=== PATIENT | male | born 1970 ===

== ENCOUNTER → 2022-11-18 07:47 | Outpatient (CLI) | payer BC, SELFPAY ==
--- NOTE | ~2022-11-18 | MR_ITS ---
EXAMINATION: MR knee LT wo con DATE: 11/18/2022 08:16 INDICATION: Chronic left knee pain TECHNIQUE: Magnetic resonance imaging (MRI) of the left knee was performed without intravenous contra st. Sequences included coronal PD-weighted FSE, coronal PD-weighted FS FSE, sagittal T2-weighted FSE , sagittal PD-weighted FS FSE and axial PD weighted fat saturated FSE. COMPARISON: None. FINDINGS: Medial compartment: Medial meniscus is normal. Deep chondral ulceration without degenerative subchondral changes measurin g 12 mm AP and 7 mm medial collateral at the anterior weightbearing medial femoral condyle. Remaining articular cartilage is normal. Lateral compartment: The anterior horn of the lateral meniscus appears relatively small with increased angle of the free e dge at the junction the anterior horn and body suggesting prior partial meniscectomy. Remainder of th e lateral meniscus is normal. Articular cartilage is normal. Patellofemoral compartment: Partial-thickness chondral fissuring at the medial patellar facet extending to the apical ridge with small central subchondral osteophyte at the medial aspect of the medial facet. Partial-thickness lesly dral ulceration involving up to 50% the cartilage thickness without degenerative subchondral changes at the central aspect of the trochlear groove, medial side of the lateral trochlea the inferior aspec t of the medial trochlea. Ligaments and tendons: Anterior and posterior cruciate ligaments are normal. The medial collateral ligament and fibular hermes ateral ligament complex are normal. The extensor mechanism is normal. The visualized medial and later al hamstring tendons as well as the iliotibial band are normal. Fluid: Physiologic amount of fluid in the joint space. No loose osteochondral bodies identified. 3 small lik yoan ganglion cysts at the medial aspect of Hoffa's fat pad along the periphery of the anterior horn o f the medial meniscus and medial rim of the medial tibial plateau. Small So's cyst. Osseous/other: Small bone island at the posterior aspect of the lateral tibial plateau. Otherwise normal marrow sign al. No fracture or pathologic marrow replacing process. IMPRESSION: 1. Changes of prior mild partial meniscectomy at the anterior horn and to the anterior horn and body of the lateral meniscus. 2. Mild medial and patellofemoral osteoarthritis with small deep ulceration at the anterior weightbea ring medial femoral condyle and scattered moderate grade patellofemoral chondromalacia. Reviewed, dictated and finalized at location A. IMPRESSION: 1. Changes of prior mild partial meniscectomy at the anterior horn and to the a nterior horn and body of the lateral meniscus. 2. Mild medial and patellofemoral osteoarthritis with small deep ulceration at the anterior weightbearing medial femoral condyle and scattered moderate grade patellofemoral chondromalacia.
== END ==
PROVIDERS: PCP Hospitalist; Visit Provider Orthopaedic Surgery
DX: M17.12 Unilateral primary osteoarthritis, left knee (principal)
CPT/HCPCS: 73721

== ENCOUNTER 2024-03-15 10:44 | Outpatient (CLI) | payer BC, SELFPAY ==
--- NOTE | ~2024-03-15 | MR_ITS ---
MRI of the lumbar spine Clinical History: Hip pain Technique: Axial T2-weighted images, and sagittal T1-weighted, T2-weighted, and T2 fat-sat images wer e acquired. Findings: There is no fracture or subluxation of the lumbar spine. There is mild reversal of the norm al lumbar lordosis. No suspicious bone marrow signal abnormality seen. At L1-L2, there is no distinct. There is left paracentral to left foraminal disc bulge with mild face t arthropathy. No central canal stenosis. Neural foramina are preserved. There is mild left lateral r ecess stenosis. At L2-L3, there is diffuse disc bulge with annular fissure and degenerative disc narrowing. There is moderate facet arthropathy. No central canal stenosis or neural foraminal narrowing. At L3-L4, there is diffuse disc bulge with moderate facet arthropathy. No central canal stenosis. The re is moderate to advanced left neural foraminal narrowing, and mild right neural foraminal narrowing . At L4-L5, there is diffuse disc bulge and moderate facet arthropathy. There is mild central canal silvestre nosis. There is moderate to advanced bilateral neural foraminal narrowing, left worse than right. At L5-S1, there is no disc bulge or herniation. There is advanced facet arthropathy. No central canal stenosis. There is moderate to advanced left neural foraminal narrowing. Right neural foramen preser kusum. Paravertebral soft tissues are unremarkable. Impression: Moderate degenerative spondylosis, as above. Reviewed, dictated and finalized at [facility]. Impression: Moderate degenerative spondylosis, as above.
--- NOTE | ~2024-03-15 | MR_ITS ---
EXAMINATION: MR hip RT w con DATE: 03/15/2024 12:34 INDICATION: Right hip pain. TECHNIQUE: Magnetic resonance imaging (MRI) of the right hip was performed without intravenous contra st after intra-articular injection of contrast (MRI arthrogram). COMPARISON: None FINDINGS: Bones/cartilage: There is lumbar levocurvature and mild spondylosis. The hip joints demonstrate marginal osteophytes. Small [id number] images of right hip demonstrate cartilage surface irregularity. Labrum: Right acetabular labrum is intact. There is a normal right acetabular labral sulcus. Fluid: Right hip joint is well distended by contrast. No left hip joint effusion. There is mild bilateral tr ochanteric bursitis. Soft tissues: The hamstring tendons and iliopsoas tendons are normal. There is a complete tear of right gluteus min imus tendon. The gluteus medius tendons are normal. Left gluteus minimus tendon is normal. The prosta te is mildly enlarged. IMPRESSION: 1. Mild osteoarthritis of the hips. 2. Complete tear of right gluteus minimus tendon. 3. Mild bilateral trochanteric bursitis. Reviewed, dictated and finalized at location A.
--- NOTE | ~2024-03-15 | XR_ITS ---
EXAMINATION: XR fl inj hip RT for MR/CT DATE: 03/15/2024 11:58 INDICATION: Right hip pain. TECHNIQUE: A time-out was performed to verify the patient's name, date of , and procedure to b e performed. The procedure including the risks, benefits, and alternatives was discussed with the pat ient. Risks discussed included bleeding and infection. The patient understood the risks and agreed to proceed. The skin overlying the right hip joint was prepped and draped in usual sterile fashion. An esthetic was administered with 1% lidocaine subcutaneously. A 22 G needle was advanced under fluoros copic guidance into the joint. Subsequently, injectate consisting of 9 mL of 1:200 Multihance, 1:4 1 % lidocaine, and 1:4 Omnipaque 240 was instilled. The needle was removed and the entry site was cyril jenifer and dressed. There were no immediate complications. Fluoroscopy exposure time was 0.1 minutes. T he total number of images was 2. FINDINGS: Real-time fluoroscopy demonstrates the needle and contrast in the right hip joint. IMPRESSION: 1. Successful right hip joint injection of contrast for subsequent MR arthrography. Reviewed, dictated and finalized at location A. IMPRESSION: 1. Successful right hip joint injection of contrast for subsequent MR arthrogra phy.
== END 2024-03-15 10:45 ==
LOC: MICIMG 10:46
PROVIDERS: PCP Hospitalist; Visit Provider Orthopaedic Surgery
DX: M16.0 Bilateral primary osteoarthritis of hip (principal); S76.011A Strain of muscle, fascia and tendon of right hip, initial encounter; M70.61 Trochanteric bursitis, right hip; M47.896 Other spondylosis, lumbar region; X58.XXXA Exposure to other specified factors, initial encounter
CPT/HCPCS: 20610; 72148; 73722; 77002; A9577; Q9967